=== PATIENT | male | born 2000 | race African-American/Black ===

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

== ENCOUNTER 2018-02-15 18:02 | Emergency (ER) | payer OTHER ==
[2018-02-15] MEDS: ALBUTEROL SULFATE 2.5 MG/3 ML NEBU. NEB (18:47)
== END 2018-02-15 20:13 | disposition home or self-care (01) ==
LOC: ER 20:13
DX: J06.9 Acute upper respiratory infection, unspecified (principal); R51 Headache; R11.2 Nausea with vomiting, unspecified; R53.83 Other fatigue; J45.909 Unspecified asthma, uncomplicated
CPT/HCPCS: 71046; 94640; 99284; J7613